=== PATIENT | female | born 1975 | race Caucasian/White ===

== ENCOUNTER 2019-02-26 23:37 | Emergency (ER) | payer OTHER ==
[~2019-02-26] VITALS: Ht 162.6 cm; Wt 86.2 kg
[2019-02-26 23:43] VITALS: BP 121/81
--- NOTE | 2019-02-26 23:45 | NUR ---
TO LOBBY A/W BED AMBULATORY
--- NOTE | 2019-02-27 00:28 | NUR ---
Pt ambulated to bed 4.
--- NOTE | 2019-02-27 01:13 | NUR ---
43 YEAR OLD FEMALE COMPLAINS OF VAGINAL BLEEDING X 12 DAYS. PATIENT STATES THAT EVERY HOUR SHE HAS TO REPLACE SATURATED PAD, HAS BEEN DOING IT SOMETIMES 12 TIMES A DAY. PATIENT DENIES ANY VAGINAL PAIN. PATIENT DENIES DIZZINESS OR LIGHTHEADEDNESS. PATIENT ALERT AND ORIENTED, BREATHING EVEN AND UNLABORED, SKIN WARM AND DRY. BED IN LOWEST POSITION, LOCKED, BED RAIL UPX1. PMH - HTN, GESTATIONAL DIABETES MEDICATIONS - LISINOPRIL ALLERGIES - NKA
[2019-02-27 01:16] LABS: BASOPHILS # (AUTO) 0.1 K/uL (0.00-0.22); BASOPHILS % (AUTO) 0.6 % (0.0-2.0); EOSINOPHILS # (AUTO) 0.3 K/uL (0-0.4); EOSINOPHILS % (AUTO) 2.6 % (0.0-4.0); HEMATOCRIT 36.8 % (36-48); HEMOGLOBIN 12.4 g/dL (12.0-16.0); LYMPHOCYTES # (AUTO) 2.5 K/uL (2.5-16.5); LYMPHOCYTES % (AUTO) 25.4 % (20.5-51.1); MEAN CORPUSCULAR HEMOGLOBIN 31 pg (27-31); MEAN CORPUSCULAR HGB CONC 34 g/dL (33-37); MEAN CORPUSCULAR VOLUME 92.3 fL (80-94); MONOCYTES # (AUTO) 0.6 K/uL (0.8-1.0); MONOCYTES % (AUTO) 6.4 % (1.7-9.3); NEUTROPHILS # (AUTO) 6.5 K/uL (1.8-7.7); PLATELET COUNT (AUTO) 219 K/uL (140-450); RED BLOOD CELL COUNT(AUTO) 3.99 MIL/uL (4.20-5.40); RED CELL DISTRIBUTION WIDTH 14.5 % (11.6-13.7)
[2019-02-27 01:24] LABS: ANION GAP 9.6 (8-16); CARBON DIOXIDE 29.3 mmol/L (21-32); CREATININE 0.7 mg/dL (0.6-1.3); POTASSIUM 3.9 mmol/L (3.5-5.1)
[2019-02-27 01:34] LABS: PROTHROMBIN TIME 9.4 secs (10.8-13.4)
[2019-02-27 01:39] LABS: FREE T4 (FREE THYROXINE) 1.06 ng/dL (0.76-1.46); THYROID STIMULATING HORMONE 2.14 uIU/mL (0.34-3.74)
--- NOTE | 2019-02-27 02:29 | NUR ---
PATIENT ALERT AND AWAKE, BREATHING EVEN AND UNLABORED
--- NOTE | 2019-02-27 03:30 | NUR ---
PATIENT ALERT AND AWAKE, BREATHING EVEN AND UNLABORED
[2019-02-27 04:23] VITALS: BP 117/80
--- NOTE | 2019-02-27 04:23 | NUR ---
Patient discharged with v/s stable. Written and verbal after care instructions ABOUT UTERINE BLEEDING (DYSFUNCTIONAL) AND OVARIAN CYSTS given and explained. Patient alert, oriented and verbalized understanding of instructions. Ambulatory with steady gait. All questions addressed prior to discharge. ID band removed. Patient advised to follow up with PMD. Rx of NAPROSYN given. Patient educated on indication of medication including possible reaction and side effects. Opportunity to ask questions provided and answered.
== END 2019-02-27 04:23 | disposition home or self-care (01) ==
LOC: MED 23:37
DX: N93.8 Other specified abnormal uterine and vaginal bleeding (principal); N83.209 Unspecified ovarian cyst, unspecified side; I10 Essential (primary) hypertension; Z98.890 Other specified postprocedural states
CPT/HCPCS: 36415; 76830; 80048; 81025; 84439; 84443; 84702; 85025; 85610; 85730; 99284; Q0092

== ENCOUNTER 2019-08-30 17:58 | Emergency (ER) | payer OTHER ==
[~2019-08-30] VITALS: Ht 162.6 cm; Wt 86.2 kg
[2019-08-30 18:12] VITALS: BP 123/83
--- NOTE | 2019-08-30 18:17 | NUR ---
WAIT AT LOBBY. HANDED URINE CUP.
--- NOTE | 2019-08-30 19:38 | NUR ---
Patient discharged with v/s stable. Written and verbal after care instructions given and explained. Patient verbalized understanding. Ambulatory with steady gait. All questions addressed prior to discharge. Advised to follow up with PMD.
--- NOTE | 2019-08-30 19:38 | NUR ---
PT SEEN AND ASSESSED BY CADENCE LEHMAN. NO NURSING CARE PROVIDED.
== END 2019-08-30 19:38 | disposition home or self-care (01) ==
LOC: MED 17:58
DX: R00.2 Palpitations (principal); I10 Essential (primary) hypertension
CPT/HCPCS: 93005; 99283

== ENCOUNTER 2020-08-26 10:54 | Emergency (ER) | payer OTHER ==
[~2020-08-26] VITALS: Ht 162.6 cm; Wt 87.8 kg
[2020-08-26 11:12] VITALS: BP 152/96
--- NOTE | 2020-08-26 13:45 | NUR ---
Patient to Ultrasound via wheelchair from [facility].
[2020-08-26 13:47] LABS: APPEARANCE,URINE CLEAR (CLEAR); BILIRUBIN,URINE NEGATIVE (NEGATIVE); BLOOD, URINE 3+ (NEGATIVE); COLOR,URINE YELLOW (YELLOW); LEUKOCYTE ESTERASE ,URINE NEGATIVE (NEGATIVE); NITRITE, URINE NEGATIVE (NEGATIVE); UGLUCOSE NEGATIVE (NEGATIVE)
--- NOTE | 2020-08-26 14:00 | NUR ---
Pt back to lobby via wheelchair. from Ultrasound.
--- NOTE | 2020-08-26 14:00 | NUR ---
45 y/o F BIB self from home with c/c vaginal bleeding, LQ abdominal pain, generalized weakness. Patient A&Ox4, ambulatory, reports vaginal bleeding that 2-3 weeks ago but worsen. Patient states bleeding began 08/09; reports abdominal discomfort /, bloating/cramping/intermittent, non-radiating. Pt states feels similar to menstrual cramps. Patient states increased of clotting, going through 3+ pads/hour. Patient reports new medication of Provera x 5 days ago. Denies fever, chills, nausea, vomiting, diarrhea, constipation, dizziness, SOB, chest pain. Bowel sounds normoactive x 4 quadrants, abdomen soft/round/non-tender. Pt placed into a gown. Bed locked in lowest position, side rails x 1, call light in reach. PMH: HTN, migraines, low iron, vitamin D deficiency Meds: Lisinopril, amitriptyline NKA
[2020-08-26 14:02] LABS: RBC,URINE TOO NUMEROUS TO COUN /HPF (0-5); WBC,URINE NONE SEEN /HPF (0-5)
--- NOTE | 2020-08-26 14:11 | NUR ---
Patient ambulated to bed 10 with steady/even gait.
[2020-08-26 14:39] LABS: BASOPHILS % (AUTO) 0.3 % (0.0-2.0); EOSINOPHILS % (AUTO) 0.6 % (0.0-4.0); HEMOGLOBIN 12.9 g/dL (12.0-16.0); LYMPHOCYTES # (AUTO) 1.7 K/uL (2.5-16.5); LYMPHOCYTES % (AUTO) 26.3 % (20.5-51.1); MEAN CORPUSCULAR HEMOGLOBIN 30 pg (27-31); MEAN CORPUSCULAR HGB CONC 33 g/dL (33-37); MEAN CORPUSCULAR VOLUME 89.4 fL (80-94); MONOCYTES # (AUTO) 0.4 K/uL (0.8-1.0); MONOCYTES % (AUTO) 5.6 % (1.7-9.3); NEUTROPHILS # (AUTO) 4.4 K/uL (1.8-7.7); NEUTROPHILS % (AUTO) 67.2 % (42.2-75.2); PLATELET COUNT (AUTO) 234 K/uL (140-450); RED BLOOD CELL COUNT(AUTO) 4.36 MIL/uL (4.20-5.40); RED CELL DISTRIBUTION WIDTH 14.4 % (11.6-13.7); WHITE BLOOD COUNT (AUTO) 6.5 K/uL (4.8-10.8)
--- NOTE | 2020-08-26 14:39 | NUR ---
Dr. Bruno is evaluating patient at bedside.
[2020-08-26 15:35] VITALS: BP 148/92
--- NOTE | 2020-08-26 16:10 | NUR ---
PT CALLED BACK BY YENI MORAN FOR REDRAW OF ABNORMAL APPT VALUE. PT IN [facility].
--- NOTE | 2020-08-26 17:00 | NUR ---
LABS CAME BACK NORMAL. YENI MORAN SENT PT HOME.
== END 2020-08-26 17:00 | disposition home or self-care (01) ==
LOC: MED 10:54
DX: N93.9 Abnormal uterine and vaginal bleeding, unspecified (principal); I10 Essential (primary) hypertension
CPT/HCPCS: 36415; 76830; 81001; 81025; 84702; 85025; 85610; 85730; 99284